=== PATIENT | male | born 1995 | race African-American/Black ===

== ENCOUNTER → 2018-11-21 | Outpatient (CLI) | payer MEDICAID | LOC: COL.RAD 07:53 | DX: R11.2 Nausea with vomiting, unspecified (principal) | CPT/HCPCS: A9541 ==

== ENCOUNTER → 2019-01-01 | Outpatient (CLI) | payer MEDICAID | LOC: COL.RAD 12:36 | DX: R11.2 Nausea with vomiting, unspecified (principal) ==

== ENCOUNTER → 2021-11-30 | Outpatient (CLI) | payer BC, MEDICAID | LOC: COL.RAD 11-19 08:00 | DX: R11.2 Nausea with vomiting, unspecified (principal) | CPT/HCPCS: A9541 ==